=== PATIENT | female | born 1980 | race Caucasian/White ===

== ENCOUNTER 2018-08-13 17:45 | Emergency (ER) | payer OTHER, MEDICAID ==
--- NOTE | 2018-08-13 18:42 | RAD ---
CHEST TWO VIEWS: HISTORY: Cough. COMPARISON: None. FINDINGS: Two views of the chest show a normal sized cardiomediastinal silhouette. There is a solid area of ai r space opacity projecting over the right lower lobe. This could represent an early infiltrate. No pleural effusion is seen. IMPRESSION: Possible right lower lobe early infiltrate. POS: [facility]
[2018-08-13] MEDS ORDERED: Ketorolac Tromethamine 60 MG/2 ML VIAL ONE (18:47)
== END 2018-08-13 19:12 | disposition home or self-care (01) ==
LOC: ERS 17:45
DX: J18.1 Lobar pneumonia, unspecified organism (principal); F32.9 Major depressive disorder, single episode, unspecified; F17.210 Nicotine dependence, cigarettes, uncomplicated
CPT/HCPCS: 71046; 87081; 87430; 96372; J1885

== ENCOUNTER 2018-08-19 11:11 | Emergency (ER) | payer MEDICAID, OTHER ==
[2018-08-19] MEDS ORDERED: Ketorolac Tromethamine 60 MG/2 ML VIAL ONE (12:35)
[2018-08-19] MEDS ORDERED: Pseudoephedrine HCl 30 MG TAB PO SCH (12:45)
--- NOTE | 2018-08-19 14:01 | RAD ---
RIGHT KNEE RADIOGRAPHS 4 VIEWS: DATE: 08/19/2018. PROVIDED CLINICAL HISTORY: Right knee pain. FINDINGS: There is no evidence for a fracture or other acute osseous abnormality. Osteophyte formation is seen about the knee. Alignment appears anatomic. Joint spaces appear preserved. IMPRESSION: No evidence for an acute osseous abnormality. POS: [facility]
--- NOTE | 2018-08-19 14:03 | RAD ---
PORTABLE AP CHEST XRAY: DATE: 08/19/2018. HISTORY: Cough. Recently diagnosed with pneumonia. The patient is post antibiotics. COMPARISON: 08/13/2018. FINDINGS: The previously noted patchy nodular density at the medial right lung base is not seen on today's exam ination which may be related to resolution of a focal area of pneumonitis. The lungs do appear clear on today's examination. The cardiac silhouette and pulmonary vasculature are within normal limits. No other interval change. IMPRESSION: 1. No acute cardiopulmonary process. 2. Previously noted patchy nodular density at the medial right lung base is not visualized on the cu rrent study which may be related to resolution of pneumonitis. POS: [facility]
== END 2018-08-19 14:27 | disposition home or self-care (01) ==
LOC: ERS 11:11
DX: R05 Cough (principal); M25.561 Pain in right knee; F17.210 Nicotine dependence, cigarettes, uncomplicated; F32.9 Major depressive disorder, single episode, unspecified
CPT/HCPCS: 71046; 96372; J1885

== ENCOUNTER 2019-01-11 08:27 | Emergency (ER) | payer MEDICAID, SELFPAY ==
--- NOTE | 2019-01-11 08:59 | RAD ---
EXAM: 4 views of the left knee HISTORY: Knee pain that began 2 weeks ago COMPARISON: None FINDINGS: No knee effusion is seen. There is no evidence of acute fracture or dislocation. No signifi cant degenerative changes are seen. No soft tissue swelling is present. IMPRESSION: No evidence of acute osseous abnormality.
[2019-01-11] MEDS ORDERED: Ketorolac Tromethamine 60 MG/2 ML VIAL ONE (10:25)
--- NOTE | 2019-01-11 10:55 | ULT ---
EXAM: Left lower extremity venous ultrasound HISTORY: Left lower extremity pain and edema for 3 days COMPARISON: None TECHNIQUE: Multiplanar grayscale and color Doppler images were obtained in a left lower extremity bud ous ultrasound. Spectral analysis of the Doppler waveforms were performed. FINDINGS: The common femoral vein, profunda femoral vein, superficial femoral vein, and popliteal vei n are normal in appearance without visible thrombus. These vessels demonstrate normal compression, flow, and augmentation. The posterior tibial vein and greater saphenous vein are patent without evidence of DVT. IMPRESSION: No evidence of DVT.
== END 2019-01-11 11:22 | disposition home or self-care (01) ==
LOC: ERS 08:27
DX: M25.462 Effusion, left knee (principal); F17.210 Nicotine dependence, cigarettes, uncomplicated
CPT/HCPCS: 96372; J1885

== ENCOUNTER 2021-01-08 20:37 | Emergency (ER) | payer MEDICAID, SELFPAY ==
[~2021-01-08 20:37] MED LIST: Iopamidol-370 76% 500 ML 1 ML ONE
[2021-01-08] MEDS ORDERED: Dexamethasone 10 MG/ML VIAL ONE (21:35)
[2021-01-08] MEDS ORDERED: Magnesium 2 GM/50 ML BAG (IN WATER) ONE (21:41)
[2021-01-08] MEDS ORDERED: Albuterol Sulfate 2.5 mg/3 ml Neb ONE (21:46)
[2021-01-08 21:50] LABS: #Basophils 0.1 thou/uL (0.0-0.2); #Eosinphils 0.8 thou/uL (0.0-0.7); #Lymphocytes 2.7 thou/uL (1.20-3.40); #Monocytes 0.6 thou/uL (0.11-0.59); %Basophils 0.5 % (0.0-1.0); %Eosinophils 6.4 % (0.0-10.0); %Lymphocytes 20.4 % (21.0-51.0); %Monocytes 4.8 % (0.0-10.0); Hemoglobin 10.7 g/dL (12.0-16.0); Mean Corpuscular HGB CONC 31.4 g/dL (32.0-36.0); Mean Corpuscular Hemoglobin 24.4 pg (27.0-31.0); Mean Corpuscular Volume 77.7 fL (78.0-98.0); Mean Platelet Volume 7.4 fL (7.4-10.4); Platelet Count 361 thou/uL (130-400); RBC Distribution Width 17.5 % (11.5-14.5); Red Blood Cell (RBC) Count 4.39 mill/uL (4.20-5.40); White Blood Cell (WBC) Count 13.2 thou/uL (4.8-10.8)
[2021-01-08 22:10] LABS: ALT (SGPT) 14 U/L (8-55); AST (SGOT) 14 U/L (5-34); Albumin 3.5 g/dL (3.5-5.0); Alkaline Phosphatase 66 U/L (40-110); Anion Gap 14 mmol/L (10-20); BUN (Urea Nitrogen) 8 mg/dL (7.0-18.7); Bilirubin, Total 0.3 mg/dL (0.2-1.2); CK (CPK) 80 U/L (29-168); Calc. Creatinine Clearance 0 mL/min (70-130); Calcium 8.8 mg/dL (7.8-10.44); Carbon Dioxide 29 mmol/L (22-29); Chloride 99 mmol/L (98-107); Globulin 3.3 g/dL (2.4-3.5); Glucose 96 mg/dL (70-105); Lipase 16 U/L (8-78); Potassium 3.8 mmol/L (3.5-5.1); Protein, Total 6.8 g/dL (6.0-8.3); Sodium 138 mmol/L (136-145)
== END 2021-01-08 23:25 | disposition home or self-care (01) ==
LOC: ERS 20:37
DX: J45.901 Unspecified asthma with (acute) exacerbation (principal); R91.1 Solitary pulmonary nodule; F17.210 Nicotine dependence, cigarettes, uncomplicated
CPT/HCPCS: 71045; 71275; 80053; 82550; 83690; 83880; 84484; 85025; 85379; 93005; 96365; 96375; J1100; J3475; J7611; J7620; Q9967

== ENCOUNTER 2021-01-17 18:48 | Emergency (ER) | payer SELFPAY ==
[2021-01-17 19:25] LABS: #Eosinphils 0.8 thou/uL (0.0-0.7); #Lymphocytes 2.5 thou/uL (1.20-3.40); #Monocytes 0.5 thou/uL (0.11-0.59); #Neutrophils 7.7 thou/uL (1.40-6.50); %Basophils 0.4 % (0.0-1.0); %Lymphocytes 21.7 % (21.0-51.0); %Monocytes 4.3 % (0.0-10.0); %Neutrophils 66.7 % (42.0-75.0); Hemoglobin 10.8 g/dL (12.0-16.0); Mean Corpuscular HGB CONC 31.5 g/dL (32.0-36.0); Mean Corpuscular Hemoglobin 24.7 pg (27.0-31.0); Mean Corpuscular Volume 78.4 fL (78.0-98.0); Mean Platelet Volume 7.2 fL (7.4-10.4); Platelet Count 411 thou/uL (130-400); Red Blood Cell (RBC) Count 4.37 mill/uL (4.20-5.40); White Blood Cell (WBC) Count 11.6 thou/uL (4.8-10.8)
[2021-01-17 20:01] LABS: Albumin 3.8 g/dL (3.5-5.0)
[2021-01-17 20:02] LABS: Chloride 102 mmol/L (98-107); Sodium 140 mmol/L (136-145)
[2021-01-17 20:03] LABS: Calcium 9.2 mg/dL (7.8-10.44); Glucose 98 mg/dL (70-105)
[2021-01-17 20:04] LABS: Protein, Total 6.8 g/dL (6.0-8.3)
[2021-01-17 20:05] LABS: Anion Gap 12 mmol/L (10-20); Bilirubin, Total 0.2 mg/dL (0.2-1.2); Carbon Dioxide 30 mmol/L (22-29)
[2021-01-17 20:06] LABS: Alkaline Phosphatase 65 U/L (40-110)
[2021-01-17 20:07] LABS: Calc. Creatinine Clearance 0 mL/min (70-130)
[2021-01-17 20:08] LABS: BUN (Urea Nitrogen) 10 mg/dL (7.0-18.7)
[2021-01-17 20:09] LABS: ALT (SGPT) 14 U/L (8-55); AST (SGOT) 14 U/L (5-34)
== END 2021-01-17 20:31 | disposition home or self-care (01) ==
LOC: ERS 18:48
DX: R06.00 Dyspnea, unspecified (principal); Z79.899 Other long term (current) drug therapy; Z87.891 Personal history of nicotine dependence
CPT/HCPCS: 36415; 71045; 80053; 83880; 84484; 85025; 93005; 94640; J7620